=== PATIENT | female | born 1940 | race Caucasian/White ===

== ENCOUNTER → 2018-04-27 | Outpatient (CLI) | payer MEDICARE, OTHER ==
[~2018-04-27] VITALS: Ht 165.1 cm; Wt 111.1 kg
[2018-04-27] VITALS (8 sets, daily range): BP systolic 103–148; BP diastolic 53–75
[~2018-04-27] MED LIST: ALLOPURINOL 10100 M1 PO; ANDROGEL2.5 G1 TRANSDERM; BAYER CHEWABLE81 MG PO; CARDURA1 MG PO; CLIMARA1 EAC2 TRANSDERM; COQ-1030 MG PO; DIOVAN HCT 3201 EACH PO; ELIQUIS5 MG PO; FISH OIL 1,001000 M2 PO; FOLBIC RF TABL1 EACH PO; GARLIC OIL1 EACH PO; GLUCOSAMINE-CH1 EA25 PO; LASIX 20 MG TAB20 MG PO; METFORMIN HCL500 MG PO; NITROGLYCERIN0.4 MG SUBLING; NORVASC5 MG PO; PREVACID30 MG PO; PROMETRIUM200 MG PO; TOPROL XL100 MG PO; ZOCOR 10 MG TAB10 MG PO
[2018-04-27 08:11] LABS: HEMATOCRIT 42.7 % (37.0-47.0); HEMOGLOBIN 14.3 gm/dL (12.0-15.0); MCH 29.5 pg (26.0-34.0); MCHC 33.6 g/dL (28.0-37.0); MCV 87.8 fL (80.0-100.0); MPV 7.9 fl. (7.2-11.1); RBC 4.86 mil/uL (4.20-5.00); RDW-CV 13.5 % (10.5-14.5); WBC 6.2 thou/uL (4.0-11.0)
[2018-04-27 08:21] LABS: ANION GAP 4 mmol/L (7-16); BUN 20 mg/dL (7-18); CALCIUM 9.4 mg/dL (8.5-10.1); CHLORIDE 103 mmol/L (98-107); CO2 30 mmol/L (21-32); CREATININE 1.1 mg/dL (0.6-1.3); GLUCOSE 134 mg/dL (70-99); POTASSIUM 3.7 mmol/L (3.5-5.1); SODIUM 137 mmol/L (136-145)
[2018-04-27 08:25] LABS: ALBUMIN 3.9 g/dL (3.4-5.0); ALKALINE PHOSPHATASE 59 U/L (46-116); CHOLESTEROL 146 mg/dL (<200); HDL CHOLESTEROL 51 mg/dL (>40); LDL CHOLESTEROL 64 mg/dL (<100); SGOT 12 U/L (15-37); SGPT 15 U/L (30-65); TC:HDL 2.9 Ratio (Not establshd); TOTAL BILIRUBIN 0.5 mg/dL (<0.1-1.0); TOTAL PROTEIN 7.9 g/dL (6.4-8.2); TRIGLYCERIDE 155 mg/dL (<150); VLDL 31 mg/dL (<40)
[2018-04-27 08:29] LABS: SERUM ASSESSMENT Clear
[2018-04-27 08:39] LABS: APTT 25.2 Seconds (25.0-31.3); INR 1.1; PROTIME 10.8 Seconds (9.20-11.50)
--- NOTE | 2018-04-27 10:58 | EKG ---
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: : 1940 Requested By: Sony Fletcher Order Number: [id number] Reading MD: Sony Fletcher Measurements Intervals [place] Rate: 56 P: [place]: QRS: -11 QRSD: 116 T: 30 QT: 499 QTc: 482 Interpretive Statements Atrial fibrillation Ventricular premature complex Incomplete right bundle branch block Low voltage, precordial leads No previous ECG available for comparison Electronically Signed On 04-27-2018 10:58:16 CDT by Sony Fletcher [email or web address] <ELECTRONICALLY SIGNED> By: Sony Fletcher MD, [facility] 04/27/18 1058 D: 09/901 09 Sony Fletcher MD, FACC /EPI
--- NOTE | 2018-04-27 13:23 | CARD ---
[address] [address] CARDIAC CATH REPORT Name: HUMZA MUNIZ [id number] Admission: 04/27/18 Attend Phys: Sony Fletcher MD, Discharge: Date of : 42 Report #: [id number] THIS REPORT FOR: //name// APPROVED REPORT Study performed: 04/27/2018 08:00:47 Patient Details Patient Status: Out-Patient Room #: The patient is a 77 year-old female Event Personnel Sony Fletcher Dietitian Assistant, Connie Chaves RN [place] Torch Operator, Jennifer Nicholas RTR Monitor, Raymundo Irby (R) Scrub Procedures Performed Art Access - R radial artery Left Heart Cath w/or w/o Coronaries [facility] Hemostasis with Hemoband Indication Positive stress test Risk Factors Hypercholesterolemia, Hypertension Procedure Narrative The patient was brought electively to the Cardiac Catheterization Laboratory and was prepped and draped in a sterile manner. The right wrist was infiltrated with 1% Lidocaine subcutaneous anesthesia. A Slender Glidesheath sheath was inserted into the right radial artery. Coronary angiography was performed using coronary diagnostic catheters. The right coronary system was accessed and visualized with a Diagnostic 3DRC 5fr catheter. The left coronary system was accessed and visualized with a Diagnostic 6fr JR4 catheter. Closure device was deployed with a Fr Vasc-Band Lng 27cm. Intraoperative Conscious Sedation Sedation start time: 09:51 Case end Time: 10:20 Fentanyl 25 mcg Versed 2 mg Fluoro Time: 11.1 minutes Dose: DAP [id number] cGycm2 1344 mGy Contrast Type and Amount: Visipaque [address] [place] [address] CARDIAC CATH REPORT Name: HUMZA MUNIZ Room: [facility]#: [id number] Admission: 04/27/18 Attend Phys: Sony Fletcher MD, Discharge: Date of : 42 Report #: [id number] Coronary Angiography The patient's coronary anatomy is right dominant. Diagnostic Cath Left Main 0 Percent narrowing LAD 30 Percent proximal and mid LAD narrowing with aneurysmal dilatation between these narrowings Circumflex 40% mid vessel narrowing Right Coronary 30% proximal narrowing of this dominant vessel Left Ventriculography Left Ventriculography was not performed. Hemodynamics The aortic pressure is 111/62 mmHg with a mean of 85 mmHg. Conclusion #1 modest coronary artery disease characterized by the following: A 30% proximal and mid LAD narrowing with aneurysmal dilatation between the narrowings B 40% narrowing of the midportion of the nondominant circumflex C large dominant right coronary artery with 30% proximal narrowing #2 normal systemic pressure throughout the study Recommendations Cardiac Risk Reduction Program Diagnostic Cath Approved by: Sony Fletcher MD Date/Time: 04/27/2018 13:21:32 <ELECTRONICALLY SIGNED> By: Sony Fletcher MD, [facility] 04/27/18 1322 21 1322Joasher Fletcher MD, [facility] /INF
--- NOTE | 2018-04-27 13:38 | 2DMMODE ---
[place] [address] 2 D/M-MODE ECHOCARDIOGRAM Name: FLAVIOHUMZA L Room: [facility]#: [id number] Admission: 04/27/18 Attend Phys: tSephen Grimaldo Discharge: Date of : 42 Date of Service: 04/27/18 1337 Report #: [id number] THIS REPORT FOR: //name// APPROVED REPORT Study performed: 04/27/2018 11:20:31 EXAM: Comprehensive 2D, Doppler, and color-flow Echocardiogram Patient Location: CVL BSA: 2.16 HR: 57 bpm BP: 116/65 mmHg Other Information Study Quality: Fair Indications CAD 2D Dimensions IVSd: 15.93 (7-11mm) LVOT Diam: 22.03 (18-24mm) LVDd: 48.67 mm PWd: 12.93 (7-11mm) Ascending Ao: 31.40 (22-36mm) LVDs: 32.31 (25-40mm) Aortic Root: 25.05 mm Volumes Left Atrial Volume (Systole) LA ESV Index: 37.00 mL/m2 Aortic Valve AoV Peak Jacek.: 2.10 m/s AO Peak Gr.: 17.59 mmHg LVOT Max P.21 mmHg AO Mean Gr.: 10.68 mmHg LVOT Mean P.08 mmHg LVOT Max V: 0.74 m/s AO V2 VTI: 52.53 cm LVOT Mean V: 0.48 m/s FLORENCE (VTI): 1.22 cm2 LVOT V1 VTI: 16.88 cm Mitral Valve E/A Ratio: 3.80 MV Decel. Time: 180.26 ms MV E Max Jacek.: 0.86 m/s MV PHT: 52.28 ms MVA (PHT): 4.21 cm2 [place] [address] 2 D/M-MODE ECHOCARDIOGRAM Name: HUMZA MUNIZ Room: [facility]#: [id number] Admission: 04/27/18 Attend Phys: Stephen Grimaldo Discharge: Date of : 42 Date of Service: 04/27/18 1337 Report #: [id number] TDI E/Lateral E': 6.62 E/Medial E': 6.62 Medial E' Jacek.: 0.13 m/s Lateral E' Jacek.: 0.13 m/s Pulmonary Valve PV Peak Jacek.: 0.77 m/s PV Peak Gr.: 2.38 mmHg Tricuspid Valve RAP Estimate: 5.00 mmHg TR Peak Gr.: 19.36 mmHg RVSP: 24.36 mmHg PA Pressure: 24.36 mmHg Left Ventricle The left ventricle is normal size. There is normal LV segmental wall motion. There is normal left ventricular wall thicknes Left ventricular systolic function is normal. The left ventricular ejection fraction is within the normal range. LVEF is 60%. This study is not technically sufficient to allow evaluation of the LV diastolic function due to atrial fibrillation. Right Ventricle Right ventricle is mildly dilated. The right ventricular systolic function is normal. Atria Left atrium is mildly dilated. Right atrium is borderline dilated. Aortic Valve Mild aortic valve sclerosis. Trace aortic regurgitation. No hemodynamically significant valvular aortic stenosis. Mitral Valve The mitral valve is normal in structure. Trace mitral regurgitation. No evidence of mitral valve stenosis. Tricuspid Valve The tricuspid valve is normal in structure. Trace tricuspid regurgitation. Pulmonic Valve The pulmonary valve is normal in structure. Trace [place]mon[place] [address] 2 D/M-MODE ECHOCARDIOGRAM Name: HUMZA MUNIZ Room: [facility]#: [id number] Admission: 04/27/18 Attend Phys: Stephen Grimaldo Discharge: Date of : 42 Date of Service: 04/27/18 1337 Report #: [id number] Great Vessels The aortic root is normal in size. IVC is not visualized. Pericardium There is no pericardial effusion. <Conclusion> The left ventricle is normal size. Left ventricular systolic function is normal. The left ventricular ejection fraction is within the normal range. LVEF is 60%. This study is not technically sufficient to allow evaluation of the LV diastolic function due to atrial fibrillation. Right ventricle is mildly dilated. The right ventricular systolic function is normal. Left atrium is mildly dilated. Right atrium is borderline dilated. Mild aortic valve sclerosis. Trace aortic regurgitation. No hemodynamically significant valvular aortic stenosis. The mitral valve is normal in structure. Trace mitral regurgitation. The tricuspid valve is normal in structure. There is no pericardial effusion. There is normal LV segmental wall motion. <ELECTRONICALLY SIGNED> By: Sony Fletcher MD, [facility] 04/27/18 1337 133 36 Sony Fletcher MD, FACC /INF
--- NOTE | 2018-04-30 14:24 | NUR ---
Attempted to make a follow up phone call, there was no answer, was able to leave a message with a return phone number if she had any questions or concerns.
== END | disposition home or self-care (01) ==
LOC: M.CL 07:33 → M.TBA-CV 10:35 → M.CL 10:35
PROVIDERS: Internal Medicine
DX: I25.10 Atherosclerotic heart disease of native coronary artery without angina pectoris (principal); I08.0 Rheumatic disorders of both mitral and aortic valves; I11.0 Hypertensive heart disease with heart failure; I50.9 Heart failure, unspecified; E11.9 Type 2 diabetes mellitus without complications; E78.00 Pure hypercholesterolemia, unspecified; Z98.890 Other specified postprocedural states; Z90.49 Acquired absence of other specified parts of digestive tract; Z90.710 Acquired absence of both cervix and uterus; Z96.651 Presence of right artificial knee joint; Z79.899 Other long term (current) drug therapy

== ENCOUNTER 2018-06-10 09:00 | Emergency (ER) | payer MEDICARE, OTHER ==
[~2018-06-10] VITALS: Ht 165.1 cm; Wt 111.1 kg
[2018-06-10 09:09] VITALS: BP 118/59
[2018-06-10 09:58] LABS: HEMATOCRIT 40.7 % (37.0-47.0); HEMOGLOBIN 13.4 gm/dL (12.0-15.0); MCH 29.1 pg (26.0-34.0); MCHC 32.9 g/dL (28.0-37.0); MCV 88.5 fL (80.0-100.0); MPV 7.9 fl. (7.2-11.1); RBC 4.6 mil/uL (4.20-5.00); RDW-CV 13.1 % (10.5-14.5); WBC 5.8 thou/uL (4.0-11.0)
== END 2018-06-10 10:09 | disposition home or self-care (01) ==
LOC: M.ERS 09:00
PROVIDERS: Emergency Medicine Emergency Medical Services
DX: H11.32 Conjunctival hemorrhage, left eye (principal); I11.0 Hypertensive heart disease with heart failure; I50.9 Heart failure, unspecified; E11.9 Type 2 diabetes mellitus without complications; Z90.49 Acquired absence of other specified parts of digestive tract; Z90.710 Acquired absence of both cervix and uterus; Z96.651 Presence of right artificial knee joint

== ENCOUNTER 2018-10-14 22:04 | Emergency (ER) | payer MEDICARE, OTHER ==
[~2018-10-14] VITALS: Ht 167.6 cm; Wt 113.4 kg
[2018-10-14 23:12] LABS: INFLUENZA A ANTIGEN None Detected (None Detect); INFLUENZA B ANTIGEN None Detected (None Detect)
[2018-10-14] MEDS ORDERED: DOXYCYCLINE 10100 MG PO (23:47)
[2018-10-15 00:08] VITALS: BP 178/68
== END 2018-10-15 00:08 | disposition home or self-care (01) ==
LOC: M.ERS 22:04
PROVIDERS: Nurse Practitioner Family
DX: J18.9 Pneumonia, unspecified organism (principal); E11.9 Type 2 diabetes mellitus without complications; I11.0 Hypertensive heart disease with heart failure; I50.9 Heart failure, unspecified; Z90.49 Acquired absence of other specified parts of digestive tract; Z96.651 Presence of right artificial knee joint; Z90.12 Acquired absence of left breast and nipple

== ENCOUNTER → 2020-04-28 | Outpatient (CLI) | payer MEDICARE, OTHER ==
[~2020-04-28] MED LIST changes: -CLIMARA1 EAC2 TRANSDERM; +COQ-10100 MG PO; -COQ-1030 MG PO; +DOXYCYCLINE 10100 MG PO; +ESTRADIOL1 EAC4 TRANSDERM; +GARLIC OIL1000 MG PO; +HYDROCHLOROTHIA25 M2 PO; +INNER DEFENSE PO; +LOSARTAN POTAS100 MG PO; +MAGNESIUM250 M1 PO; +NORVASC5 M1 PO; +PROGESTERONE100 MG PO; -PROMETRIUM200 MG PO; +VITAMIN D-40010 MCG PO
[2020-04-28 11:40] LABS: ABSOLUTE BASOPHILS 0.1 thou/uL (0.0-0.2); ABSOLUTE EOSINOPHILS 0.1 thou/uL (0.0-0.7); ABSOLUTE MONOCYTES 0.6 thou/uL (0.0-1.2); ABSOLUTE NEUTROPHILS 4.1 thou/uL (1.6-8.1); BASOPHILS 1.8 %; EOSINOPHILS 1.2 %; HEMOGLOBIN 13.5 gm/dL (12.0-15.0); LYMPHOCYTES 28.8 %; MCH 29.9 pg (26.0-34.0); MCHC 33.9 g/dL (28.0-37.0); MCV 88.2 fL (80.0-100.0); MPV 7.3 fl. (7.2-11.1); NUCLEATED RBCS 0 /100WBC; PLATELET COUNT* 263 thou/uL (150-400); POLYS 60.2 %; RBC 4.53 mil/uL (4.20-5.00); RDW-CV 13.8 % (10.5-14.5); WBC 6.8 thou/uL (4.0-11.0)
[2020-04-28 11:52] LABS: ALBUMIN 3.6 g/dL (3.4-5.0); CALCIUM 8.4 mg/dL (8.5-10.1); CREATININE 1.1 mg/dL (0.6-1.3); POTASSIUM 3.9 mmol/L (3.5-5.1); TOTAL BILIRUBIN 0.3 mg/dL (<0.1-1.0); TOTAL PROTEIN 7.3 g/dL (6.4-8.2)
[2020-04-28 12:45] LABS: ESR (SEDRATE) 6 mm/hr (0-30)
[2020-04-28 12:58] LABS: APTT 23.3 Seconds (25.0-31.3); PROTIME 10.4 Seconds (9.20-11.50)
--- NOTE | 2020-04-28 15:31 | EKG ---
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1940 Requested By: Jose Benedict Order Number: [id number] Reading MD: Harpreet Gandhi Measurements Intervals [place] Rate: 64 P: [place]: QRS: -27 QRSD: 105 T: 43 QT: 487 QTc: 503 Interpretive Statements Atrial fibrillation Low voltage, precordial leads RSR' in V1 or V2, probably normal variant Prolonged QT interval Compared to ECG 04/27/2018 09:02:33 RSR' in V1 or V2 now present Prolonged QT interval now present Ventricular premature complex(es) no longer present Electronically Signed On 04-28-2020 15:31:24 CDT by Harpreet Gandhi [email or web address] <ELECTRONICALLY SIGNED> By: Harpreet Gandhi MD, FACC 04/28/20 1531 1200 1200 Harpreet Gandhi MD, [facility] /EPI
[2020-04-29 07:08] LABS: GLYCOHEMOGLOBIN (HGB A1C) 6.4 % (4.8-5.6)
== END ==
LOC: M.LAB → M.SUR 16:19 → M.LAB 16:35
PROVIDERS: ATTEND Orthopaedic Surgery
DX: Z01.812 Encounter for preprocedural laboratory examination (principal); Z20.828 Contact with and (suspected) exposure to other viral communicable diseases; M17.12 Unilateral primary osteoarthritis, left knee

== ENCOUNTER → 2020-06-10 | Outpatient (CLI) | payer MEDICARE, OTHER ==
[~2020-06-10] MED LIST changes: +OXYCODONE HCL 55 MG PO; +TRAMADOL 50 MG50 MG PO
[2020-06-10 07:45] LABS: ABSOLUTE EOSINOPHILS 0.1 thou/uL (0.0-0.7); ABSOLUTE LYMPHOCYTES 2.4 thou/uL (0.8-5.3); ABSOLUTE MONOCYTES 0.4 thou/uL (0.0-1.2); ABSOLUTE NEUTROPHILS 2.9 thou/uL (1.6-8.1); BASOPHILS 0.2 %; EOSINOPHILS 2.2 %; HEMATOCRIT 40.1 % (37.0-47.0); HEMOGLOBIN 13.4 gm/dL (12.0-15.0); LYMPHOCYTES 41.2 %; MCH 29.6 pg (26.0-34.0); MCHC 33.5 g/dL (28.0-37.0); MCV 88.3 fL (80.0-100.0); MONOCYTES 6.8 %; MPV 7.5 fl. (7.2-11.1); NUCLEATED RBCS 0 /100WBC; PLATELET COUNT* 276 thou/uL (150-400); POLYS 49.6 %; RBC 4.54 mil/uL (4.20-5.00); RDW-CV 13.6 % (10.5-14.5); WBC 5.8 thou/uL (4.0-11.0)
[2020-06-10 07:52] LABS: ALBUMIN 3.6 g/dL (3.4-5.0); CALCIUM 8.4 mg/dL (8.5-10.1); CREATININE 0.9 mg/dL (0.6-1.3); POTASSIUM 3.7 mmol/L (3.5-5.1); TOTAL BILIRUBIN 0.4 mg/dL (<0.1-1.0); TOTAL PROTEIN 7.7 g/dL (6.4-8.2)
[2020-06-10 07:55] LABS: APTT 26.2 Seconds (25.0-31.3); INR 1.1; PROTIME 11.3 Seconds (9.20-11.50)
[2020-06-10 09:05] LABS: ESR (SEDRATE) 5 mm/hr (0-30)
== END ==
LOC: M.LAB 06-09 14:34
PROVIDERS: ATTEND Orthopaedic Surgery
DX: Z01.812 Encounter for preprocedural laboratory examination (principal); Z20.828 Contact with and (suspected) exposure to other viral communicable diseases; M17.12 Unilateral primary osteoarthritis, left knee

== ENCOUNTER 2020-06-15 07:53 | Observation (INO) | payer MEDICARE, OTHER ==
[~2020-06-15] VITALS: Ht 167.6 cm; Wt 111.1 kg
[~2020-06-15 07:53] MED LIST changes: -OXYCODONE HCL 55 MG PO; -TRAMADOL 50 MG50 MG PO
[2020-06-15 08:50] LABS: PROTIME 10.9 Seconds (9.20-11.50)
[2020-06-15 08:54] VITALS: BP 153/92
[2020-06-15 13:52] VITALS: BP 119/56
[2020-06-15 16:08] VITALS: BP 151/66
[2020-06-15 20:19] VITALS: BP 150/77
[2020-06-16 00:31] VITALS: BP 122/47
[2020-06-16 04:41] LABS: HEMATOCRIT 32.3 % (37.0-47.0); HEMOGLOBIN 10.8 gm/dL (12.0-15.0)
[2020-06-16 07:20] VITALS: BP 144/53
[2020-06-16 09:29] VITALS: BP 144/53
[2020-06-16] MEDS ORDERED: TRAMADOL 50 MG50 MG PO (09:40)
[2020-06-16] MEDS ORDERED: OXYCODONE HCL 55 MG PO (09:40)
[2020-06-16 10:41] VITALS: BP 144/53
--- NOTE | 2020-06-18 18:17 | OP ---
[address] [address] OPERATIVE REPORT Name: HUMZA MUNIZ Room: [address] Star Hoffmann#: [id number] Admission: 06/15/20 Attend Phys: Cynthia Logan Discharge: 06/16/20 Date of : 42 Report #: [id number] THIS REPORT FOR: //name// cc: Zoie Craig MD, Tuongvan T. MD ~ CC: Jose Smith DATE OF SERVICE: 06/15/2020 Ariel Lamar DO dictating for Dr. Jose Benedict. PREOPERATIVE DIAGNOSIS: Left knee degenerative joint disease. POSTOPERATIVE DIAGNOSIS: Left knee degenerative joint disease. PROCEDURE PERFORMED: Left total knee arthroplasty with Biomet Vanguard system with the following components: A. Size 67.5 mm CR femur, cemented. B. Size 71 mm fixed cruciate tibial plate, cemented. C. A 10 mm anterior stabilized polyethylene liner. D. A 31 mm asymmetric 3 peg patella, cemented. E. Two bags of Biomet bone cement. SURGEON: Jose Benedict DO. PUBLIC HEALTH OUTREACH WORKER: Ariel Lamar DO ANESTHESIA: General, regional nerve block by Anesthesia and local. FLUIDS: Crystalloids. ESTIMATED BLOOD LOSS: 100 mL. DRAINS: None. SPECIMENS: None. COMPLICATIONS: None. CONDITION: The patient is stable. DISPOSITION: PACU, then Med/Surg floor. ANTIBIOTICS: 2 g Ancef IV piggyback [place] [address] OPERATIVE REPORT Name: HUMZA MUNIZ Room: [address] Star Hoffmann#: [id number] Admission: 06/15/20 Attend Phys: Cynthia Logan Discharge: 06/16/20 Date of : 42 Report #: [id number] INDICATIONS FOR SURGERY: The patient is a very pleasant 79-year-old female who has had a left knee degenerative joint disease for some time. She has failed conservative care. She wanted to proceed with left total knee arthroplasty after all the risks, benefits, indications, and complications associated with surgery were discussed. She understands this includes but is not limited to infection, wound healing complications, neurovascular injury, blood loss, need for blood products, fracture, need for repeat surgery, chronic pain, DVT, PE, end organ damage, rhabdomyolysis, complications with anesthesia and even as well as other possibilities. The patient demonstrated good understanding and wanted to proceed with surgery. OPERATIVE FINDINGS: Surgical evaluation of the knee demonstrated eburnated bone ends tricompartmentally with osteophytic lipping and hypertrophic synovium noted. The joint fluid was normal. DESCRIPTION OF PROCEDURE: I met with the patient in the preoperative suite and the correct left knee was marked. The patient was given the benefit of general anesthetic and she had a regional nerve block by Anesthesia prior to the case. Left lower extremity was then positioned for standard total knee arthroplasty and a well-padded tourniquet was applied to the left upper thigh; however, the tourniquet was not utilized for this case. At this point, a surgical timeout was completed, indicating the correct patient, operative site and procedure performed and all in the room were in agreement and would like to proceed. I made just standard anterior midline incision with a 20 blade scalpel. Dissection was taken down to the level of the quad and capsule. A standard medial parapatellar arthrotomy was performed. I made a medial periosteal sleeve. Patella was everted and knee was brought into flexion. Excessive Hoffa's fat pad and anterior menisci as well as ACL, PCL was excised. Introduced the femur drill followed by the intramedullary alignment jair to make the distal femoral cut. This was cut in the standard fashion at 5 degrees of valgus and 11 mm resection. Next, we turned our attention to the proximal tibia. Extramedullary tibial guide was placed. Pinned this into position with the correct amount of slope as well as down the medial one third tibial tubercle and the tibial crest and second ray of the foot. An 8 mm resection was taken off the proximal tibia in the standard form. At this point, the knee was brought into extension and a 10 mm spacer block fit nicely with symmetrical varus and valgus stress. Next, I turned attention back to the distal femur. AP sizer was utilized and sized to the above-mentioned implant size. The 4-in-1 cutting block was then pinned into place and the standard anterior, posterior and chamfer cuts were performed. Any excess bone was then removed with rongeur. Trial tibial plate was then positioned and pinned into place. Next, the trial femur was placed. A 10 mm trial spacer was then inserted and found to have stability throughout range of motion with symmetrical varus and valgus stresses. We turned our attention to the patella. It was denervated with electrocautery. The patellar Biomet reamer was then utilized down to a smooth surface and the [address] [address] OPERATIVE REPORT Name: HUMZA MUNIZ Room: [address] Star Hoffmann#: [id number] Admission: 06/15/20 Attend Phys: Cynthia Logan Discharge: 06/16/20 Date of : 42 Report #: [id number] patella was then sized and drilled for the 3 pegs in the standard fashion. The patella tracked nicely. Next, the femur was drilled. The proximal tibia underwent the opening reamer followed by a cruciform punch. Trial components were removed. Orthopedic cocktail was injected in the posterior capsule and throughout the knee soft tissue. The bone ends were thoroughly cleaned with Pulsavac. At this point, we began to cement the final components in the standard form, began with the tibia, followed by the femur and lastly patella. A trial 10 mm poly was found to fit nicely with symmetrical flexion and extension gaps as well as stability with varus and valgus stress. A final 10 mm anterior stabilized poly was thrown, placed and the locking bar clicked into position. Knee was thoroughly irrigated. There was good hemostasis throughout the case. The vancomycin powder was inserted into the joint and soft tissue. Capsule was closed with a #1 Vicryl in a [id number]-lm-uuasc fashion followed by a running #1 Quill. Subcutaneous tissue was closed with a 2-0 Monocryl and a running 3-0 Stratafix was used on the skin. Dermabond skin glue was applied. Mepilex dressing placed. Needle and sponge counts were correct x 2 at the end of procedure. The patient tolerated the procedure well and was transferred to PACU in stable condition. ATTESTATION: Dr. Benedict was present throughout all critical aspects of the case. POSTOPERATIVE COURSE: The patient will be given mechanical and chemical DVT prophylaxis. Two more doses of antibiotics will be given. The patient will work with physical therapy, occupational therapy and case management for safe discharge planning. <ELECTRONICALLY SIGNED> By: Jose Benedict DO 06/18/20 1817 1501 1744Robernadja Benedict DO /nt
== END 2020-06-16 11:50 | disposition home or self-care (01) ==
LOC: M.TBA 07:53 → M.3W 13:34 → M.ORTHSURG 15:00 → M.3W 06-16 11:50
PROVIDERS: Orthopaedic Surgery; ADMIT Internal Medicine; ATTEND Internal Medicine
DX: M17.12 Unilateral primary osteoarthritis, left knee (principal); I11.0 Hypertensive heart disease with heart failure; I50.9 Heart failure, unspecified; K21.9 Gastro-esophageal reflux disease without esophagitis; E11.9 Type 2 diabetes mellitus without complications; I48.91 Unspecified atrial fibrillation; Z86.19 Personal history of other infectious and parasitic diseases; Z79.84 Long term (current) use of oral hypoglycemic drugs; Z79.899 Other long term (current) drug therapy

== ENCOUNTER → 2020-06-22 | Outpatient (CLI) | payer MEDICARE, OTHER ==
[~2020-06-22] MED LIST changes: +OXYCODONE HCL 55 MG PO; +TRAMADOL 50 MG50 MG PO
== END ==
LOC: M.ULTRA 09:34
PROVIDERS: ATTEND Orthopaedic Surgery
DX: M79.89 Other specified soft tissue disorders (principal)

== ENCOUNTER 2020-12-11 12:31 | Emergency (ER) | payer MEDICARE, OTHER ==
[~2020-12-11] VITALS: Ht 162.6 cm; Wt 111.1 kg
[2020-12-11] MEDS ORDERED: VALSARTAN40 MG PO (12:41)
[2020-12-11] MEDS ORDERED: PREVACID30 MG PO (12:41)
[2020-12-11] MEDS ORDERED: DIOVAN HCT 3201 EAC1 PO (12:44)
[2020-12-11 12:52] LABS: ABSOLUTE BASOPHILS 0.1 thou/uL (0.0-0.2); ABSOLUTE EOSINOPHILS 0.1 thou/uL (0.0-0.7); ABSOLUTE LYMPHOCYTES 1.8 thou/uL (0.8-5.3); ABSOLUTE MONOCYTES 0.4 thou/uL (0.0-1.2); ABSOLUTE NEUTROPHILS 3.4 thou/uL (1.6-8.1); BASOPHILS 1.4 %; EOSINOPHILS 1.1 %; LYMPHOCYTES 31.5 %; MCH 28.6 pg (26.0-34.0); MCHC 33.4 g/dL (28.0-37.0); MCV 85.7 fL (80.0-100.0); MONOCYTES 7.3 %; MPV 7.3 fl. (7.2-11.1); NUCLEATED RBCS 0 /100WBC; PLATELET COUNT* 251 thou/uL (150-400); POLYS 58.7 %; RBC 4.55 mil/uL (4.20-5.00); RDW-CV 14.2 % (10.5-14.5); WBC 5.8 thou/uL (4.0-11.0)
[2020-12-11 12:55] LABS: URINE BILIRUBIN NEGATIVE (Negative); URINE BLOOD NEGATIVE (Negative); URINE CLARITY CLEAR; URINE COLOR YELLOW; URINE GLUCOSE-RANDOM NEGATIVE (Negative); URINE KETONES NEGATIVE (Negative); URINE LEUKOCYTES-REFLEX 1+ (Negative); URINE NITRITE-REFLEX NEGATIVE (Negative); URINE PROTEIN NEGATIVE (Negative); URINE SPECIFIC GRAVITY <= 1.005 (1.005-1.030); URINE UROBILINOGEN 0.2 E.U./dl (0.2-1.0)
[2020-12-11 13:02] LABS: CALCIUM 8.9 mg/dL (8.5-10.1); POTASSIUM 3.8 mmol/L (3.5-5.1)
[2020-12-11 13:06] LABS: ALBUMIN 3.6 g/dL (3.4-5.0); TOTAL BILIRUBIN 0.3 mg/dL (<0.1-1.0); TOTAL PROTEIN 7.7 g/dL (6.4-8.2)
[2020-12-11 13:37] LABS: BACTERIA-REFLEX 1-9 Few /HPF (None Seen); CASTS None Seen /LPF (None Seen); CRYSTALS None Seen /LPF (None Seen); SQUAMOUS 0-3 Few /LPF (0-3); URINE RBC 0-2 Rare /HPF (0-2); URINE WBC-REFLEX 0-5 Rare /HPF (0-5)
[2020-12-11 14:58] VITALS: BP 174/70
--- NOTE | 2020-12-11 16:55 | EKG ---
[place] [address] ELECTROCARDIOGRAM REPORT Name: HUMZA MUNIZ Room: [facility]#: [id number] Admission: 12/11/20 Attend Phys: Discharge: 12/11/20 Date of : 42 Date of Service: 12/11/20 1255 Report #: [id number] THIS REPORT FOR: //name// [facility] ED Test Date: 2020-12-11 Test Time: 12:55:17 Pat Name: HUMZA MUNIZ Department: Room: Gender: F Phlebotomy Support Tech: ROSALES : 1940 Requested By: Azra Blum Order Number: [id number] MD: Sony Fletcher Measurements Intervals [place] Rate: 70 P: [place]: QRS: -29 QRSD: 100 T: -10 QT: 427 QTc: 461 Interpretive Statements Atrial fibrillation Borderline left axis deviation Low voltage, precordial leads Abnormal R-wave progression, late transition Borderline repolarization abnormality Compared to ECG 04/28/2020 12:00:03 Prolonged QT interval no longer present Electronically Signed On 12-11-2020 16:55:44 CDT by Sony Fletcher [email or web address] <ELECTRONICALLY SIGNED> By: Sony Fletcher MD, [facility] 12/11/20 1655 1255 1255 Sony Fletcher MD, FAC /EPI
== END 2020-12-11 14:59 | disposition home or self-care (01) ==
LOC: M.ERS 12:31
PROVIDERS: Physician Assistant
DX: R42 Dizziness and giddiness (principal); I11.0 Hypertensive heart disease with heart failure; I50.9 Heart failure, unspecified; E11.9 Type 2 diabetes mellitus without complications; K21.9 Gastro-esophageal reflux disease without esophagitis; Z79.899 Other long term (current) drug therapy; Z90.49 Acquired absence of other specified parts of digestive tract

== ENCOUNTER 2021-02-02 12:22 | Emergency (ER) | payer MEDICARE, OTHER ==
[~2021-02-02] VITALS: Ht 167.6 cm; Wt 111.1 kg
[~2021-02-02 12:22] MED LIST changes: +DIOVAN HCT 3201 EAC1 PO; +VALSARTAN40 MG PO
[2021-02-02 12:34] VITALS: BP 160/75
[2021-02-02] MEDS ORDERED: NORCO5 PO ×2 (14:40→14:42)
[2021-02-02] MEDS ORDERED: LIORESAL 10 MG10 MG PO (14:45)
== END 2021-02-02 14:58 | disposition home or self-care (01) ==
LOC: M.ERS 12:22
DX: S29.012A Strain of muscle and tendon of back wall of thorax, initial encounter (principal); R07.81 Pleurodynia; I11.0 Hypertensive heart disease with heart failure; I50.9 Heart failure, unspecified; E11.9 Type 2 diabetes mellitus without complications; I48.91 Unspecified atrial fibrillation; K21.9 Gastro-esophageal reflux disease without esophagitis; Z90.49 Acquired absence of other specified parts of digestive tract; Z90.711 Acquired absence of uterus with remaining cervical stump; W01.0XXA Fall on same level from slipping, tripping and stumbling without subsequent striking against object, initial encounter; Y93.89 Activity, other specified; Y92.89 Other specified places as the place of occurrence of the external cause; Y99.8 Other external cause status